=== PATIENT | female | born 2000 | race Two or more races ===

== ENCOUNTER 2023-11-21 15:40 | Emergency (ER) | payer OTHER ==
[~2023-11-21] VITALS: Ht 154.9 cm; Wt 53.1 kg
[2023-11-21 18:44] LABS: HEMATOCRIT 32.4 % (36.0-45.00); HEMOGLOBIN 10.5 g/dL (12.0-15.00); MEAN CELL VOLUME 74.8 fL (80.00-100.00); MEAN CORPUSCULAR HEMOGLOBIN 24.2 pg (27.00-32.0); MEAN CORPUSCULAR HGB CONC 32.4 g/dl (32.0-36.0); PLATELET COUNT 253 K/uL (150-450); RED BLOOD COUNT 4.33 M/uL (4.00-6.00); RED CELL DISTRIBUTION WIDTH 16.8 % (11.5-14.5)
[2023-11-21 18:58] LABS: INR 1.09; PARTIAL THROMBOPLASTIN TIME 37.9 SECONDS (22.0-34.0); PROTHROMBIN TIME 11.4 SECONDS (9.0-11.5)
[2023-11-21 19:12] LABS: ANION GAP 16 (10.0-20.0); BLOOD UREA NITROGEN 11 mg/dL (7-18); BUN CREA RATIO 14 (7.0-25.0); CALCIUM 8.8 mg/dL (8.5-10.1); CARBON DIOXIDE 20 mEq/L (21-32); CHLORIDE 105 mmol/L (98-107); CREATININE SERUM 0.78 mg/dL (0.55-1.02); GFR 92.35; GLUCOSE FASTING 64 mg/dL (65-100); OSMOLALITY SERUM 271 MOSM/KG (275-295); POTASSIUM 4.04 mEq/L (3.5-5.1); SODIUM 137 mmol/L (136-145)
[2023-11-21 19:16] LABS: HCG QUANTITATIVE < 1 mUI/mL (1-3)
[2023-11-21 20:11] LABS: PH,URINE 6.5 (5.0-8.0); URINE APPEARANCE Clear; URINE BILIRRUBIN Negative (NEGATIVE); URINE BLOOD Negative; URINE COLOR Yellow; URINE GLUCOSE Negative (NEGATIVE); URINE LEUKOCYTE Negative; URINE NITRATE Negative; URINE PROTEIN 30 (NEGATIVE)
[2023-11-21 20:12] LABS: URINE BACTERIA 2339.8 uL (0.0-1933); URINE WBC 4.6 uL (0.0-23.2)
[2023-11-21] MEDS ORDERED: DICY20TA PO (22:50)
[2023-11-21] MEDS ORDERED: ZITHROMAX500 MG PO (22:50)
[2023-11-21] MEDS ORDERED: PEPCID AC20 MG PO (22:50)
[2023-11-21] MEDS ORDERED: ZOFRAN8 MG PO (22:50)
== END 2023-11-21 23:12 | disposition home or self-care (01) ==
LOC: ER 15:41
PROVIDERS: General Practice
DX: B34.9 Viral infection, unspecified (principal); R10.9 Unspecified abdominal pain; Z20.822 Contact with and (suspected) exposure to COVID-19
CPT/HCPCS: 36415; 74177; Q9965